=== PATIENT | female | born 2000 | race Caucasian/White ===

== ENCOUNTER 2020-11-18 16:21 | Emergency (ER) | payer BC ==
[~2020-11-18] VITALS: Ht 162.6 cm; Wt 48.4 kg
[2020-11-18] MEDS ORDERED: DEXAMETHASONE 4 MG/ML, 1ML PO ONE (17:00)
--- NOTE | 2020-11-18 17:52 | NUR ---
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
--- NOTE | 2020-11-18 18:00 | NUR ---
PT PRESENTS TO ED W C/O SORE THROAT THAT STARTED A COUPLE DAYS AGO. PT DENIES FEVER. PT ALSO STATES SHE IS SHORT OF BREATH. PT ALSO HAS A BUMP ON THE OUTSIDE OF HER CHIN/THROAT THAT HAS BEEN THERE FOR A MONTH. PT A&O, RESPS EVEN AND UNLABORED, NADN. MONITORS ATTACHED, CALL LIGHT IN REACH. AWAITING LAB/RAD RESULTS.
[2020-11-18 18:02] VITALS: BP 109/69
[2020-11-18] MEDS ORDERED: DEXAMETHASONE 4 MG/ML, 1ML ONE (18:18)
--- NOTE | 2020-11-18 18:39 | NUR ---
PT GIVEN DECADRON PO, TOLDERATED WELL. NO COMPLAINTS AT THIS TIME.
--- NOTE | 2020-11-18 19:06 | NUR ---
preceptor RN note: report given to RN Kolby at bedside.
== END 2020-11-18 19:34 | disposition home or self-care (01) ==
LOC: ED 19:25
DX: J06.9 Acute upper respiratory infection, unspecified (principal); L04.9 Acute lymphadenitis, unspecified; R05 Cough; R06.02 Shortness of breath; R94.31 Abnormal electrocardiogram [ECG] [EKG]
CPT/HCPCS: 71045; 87081; 87880; 93005; 99285; J1100